=== PATIENT | female | born 1995 | race Caucasian/White ===

== ENCOUNTER 2016-09-17 00:15 | Emergency (ER) | payer MEDICAID ==
[2016-09-17 00:25] VITALS: BP 118/73; PULSE 72; TEMP 98; BMI 26.6
[2016-09-17] MEDS ORDERED: FLUCONAZOLE 150 MG TAB PO ONE (00:49)
[2016-09-17] MEDS ORDERED: CLOTRIMAZOLE 1% CREAM 15 GM TOP ONE (00:50)
--- NOTE | 2016-09-17 01:00 | EDPRACDOC ---
- General Information Chief Complaint: Skin Rash (not drug induced) Stated Complaint: RASH Time Seen by Provider: 09/17/16 00:40 Information Source: Patient Mode Of Arrival: Car Home Medications: Home Medications Clotrimazole [Lotrimin] 30 gm TP BID #1 cream..g. 09/17/16 Allergies/Adverse Reactions: Allergies Allergy/AdvReac Type Severity Reaction Status Date / Time No Known Allergies Allergy Verified 09/17/16 00:25 - History of Present Illness Onset: 1 MONTH HPI: PT PRESENTS WITH A CIRCULAR RED RASH NOTED TO PUBIC MONS. STATES THE AREA ITCHES BUT DOES NOT HURT. NO DRAINAGE NOTED FROM THE AREA. Rash Location: Reports: Perineum Quality: Reports: Pruritic, Red Known Exposure To: Reports: Other Relevant History of: Reports: None Irritability: Moderate Pain Severity: None ED Past Medical History - History Reviewed Yes Nurses notes reviewed and agree except as marked - Patient Medical History Psychological History: Denies: Depression Systemic History: Denies: Cancer - Social Medical History Smoking Status: Never smoker EDM Review of Systems - Review of Systems ROS Negative Except as Marked: Yes All systems reviewed and were negative except as marked - Physical Exam Constitutional: Alert Oriented to: Time, Person, Place Last recorded Vital Signs: Last Vital Signs Temp 98.0 F 09/17/16 00:22 Pulse 72 09/17/16 00:22 Resp 20 09/17/16 00:22 BP 118/73 09/17/16 00:22 Pulse Ox 98 09/17/16 00:22 Oxygen Pulse Oxygen Saturation 98 O2 Device Room Air Oxygen Flow Rate Fraction of Inspired Oxygen ( FIO2) - HEENT Head: Normal ( normocephalic) Eye Exam: Normal (PERRL, EOMI, Sclera white) Oropharynx: Normal (Pharynx:Moist without exudate,Gums-no swelling) Nose: No Symptoms Reported (septum midline) Neck: Normal (FROM, trachea at midline) - Respiratory/Cardiovascular Respiratory: Normal - CTA (BBS clear to auscultation without adventitious sounds ) Cardiovascular: Normal (RRR without murmur, gallop or rub) - GI Auscultation: Normal (NABS) Palpation: Normal (Soft,No rebound or guarding, non distended) Tenderness: Non tender Colunga's Sign: Negative Rectal Exam: Deferred - External: Rash (RED CIRCULAR RASH NOTED TO PUBIC MONS AREA) - Musculoskeletal Back: Normal (Non-Tender) Extremities: Normal (Normal tone, Pulses 2+ No cyanosis or edema, FROM) - Integumentary Skin: Normal, Warm, Dry Lymphatics: Normal (no adenopathy) - Neurologic Memory Impaired: Normal Motor Function: Normal (Normal tone, Pulses 2+ No cyanosis or edema, FROM) Cranial Nerve: Normal (CN II-X11 intact sensation, strength 5/5) Cerebellar: Normal Mood Description: Normal Perception: Normal - Differential Diagnosis Other Decision Time to Discharge: 01:00 - Departure Disposition: Home Condition: Stable Final Diagnosis: Fungal rash of torso Instructions: Acute Rash (ED) Education/Counseling Given To: Patient Education/Counseling Given Regarding: Diagnosis, Treatment, Prognosis, Follow Up Referrals: Austen Tejeda MD [Staff Physician] - One Week Prescriptions: Clotrimazole [Lotrimin] 30 gm TP BID #1 cream..g. Additional Instructions: FOLLOW UP WITH PCP NEXT WEEK. RETURN TO THE ED FOR WORSENING SYMPTOMS OR CONCERNS
== END 2016-09-17 01:16 | disposition home or self-care (01) ==
LOC: ED 00:15
DX: B36.9 Superficial mycosis, unspecified (principal)
CPT/HCPCS: 99282; J3490

== ENCOUNTER 2016-09-22 19:12 | Emergency (ER) | payer MEDICAID ==
[2016-09-22 19:56] VITALS: BP 129/64; PULSE 69; TEMP 98.5; BMI 26.4
--- NOTE | 2016-09-22 20:19 | DIRPT ---
CLINICAL DATA: Right hand pain for approximately 1 month. No known injury. Initial encounter. EXAM: RIGHT HAND - COMPLETE 3+ VIEW COMPARISON: None. FINDINGS: There is no evidence of fracture or dislocation. There is no evidence of arthropathy or other focal bone abnormality. Soft tissues are unremarkable. IMPRESSION: Normal exam. Electronically Signed By: Cheko Grullon M.D. On: 09/22/2016 20:16
--- NOTE | 2016-09-22 21:16 | EDPRACDOC ---
- General Information Chief Complaint: Hand Pain Stated Complaint: RIGHT ARM AND HAND PAIN Time Seen by Provider: 09/22/16 21:12 Information Source: Patient Mode of Arrival: Car Home Medications: Home Medications Meloxicam [Mobic] 7.5 mg PO BID #20 tab 09/22/16 Allergies/Adverse Reactions: Allergies Allergy/AdvReac Type Severity Reaction Status Date / Time No Known Allergies Allergy Verified 09/22/16 20:58 - History of Present Illness Onset: 1 WEEK HPI: PT PRESENTS TODAY WITH NUMBNESS AND PAIN TO RIGHT HAND AFTER "DOING A LOT OF ACTIVITY". NO DIRECT INJURY, FEVER. Location: Reports: Right Mechanism: Reports: No Injury/Trauma Associated Signs & Symptoms: Reports: Numbness, Hand Pain ED Past Medical History - History Reviewed Yes Nurses notes reviewed and agree except as marked - Patient Medical History Psychological History: Denies: Depression Systemic History: Denies: Cancer Surgical History: Denies: Hysterectomy - Social Medical History Smoking Status: Never smoker EDM Review of Systems - Review of Systems ROS Negative Except as Marked: Yes All systems reviewed and were negative except as marked Constitutional: No Symptoms Reported Neurological: Numbness Musculoskeletal: Hand, Wrist Integumentary: No Symptoms Reported - Physical Exam Constitutional: Alert (Awake), No apparent distress Oriented to: Time, Person, Place Last recorded Vital Signs: Last Vital Signs Temp 98.5 F 09/22/16 19:53 Pulse 69 09/22/16 19:53 Resp 20 09/22/16 19:53 BP 129/64 09/22/16 19:53 Pulse Ox 100 09/22/16 19:53 Oxygen Pulse Oxygen Saturation 100 O2 Device Room Air Oxygen Flow Rate Fraction of Inspired Oxygen ( FIO2) - HEENT Head: Normal Eye Exam: Normal Neck: Normal, Denies Pain, Midline - Respiratory/Cardiovascular Respiratory: Normal - CTA Cardiovascular: Normal - GI Palpation: Normal Tenderness: Non tender - Musculoskeletal Back: Normal Extremities: Other (POSITIVE PHALEN TEST; NO APPARENT DEFORMITY/SWELLLING/ BRUISING;) - Integumentary Skin: Normal Lymphatics: Normal - Neurologic Mood Description: Normal Thought: Coherent Perception: Normal Decision Time to Discharge: 21:15 - Departure Disposition: Home Condition: Good Final Diagnosis: Carpal tunnel syndrome Qualifiers: Laterality: right Qualified Code(s): G56.01 - Carpal tunnel syndrome, right upper limb Instructions: Carpal Tunnel Syndrome Exercises (GEN), RICE: Routine Care for Injuries Education/Counseling Given To: Patient Education/Counseling Given Regarding: Diagnosis, Treatment, Follow Up Referrals: None,No Provider [Primary Care Provider] - One Week Shaka Donnelly MD [Staff Physician] - One Week Prescriptions: New Meloxicam [Mobic] 7.5 mg PO BID #20 tab Additional Instructions: PLEASE FOLLOW UP WITH ORTHO.
== END 2016-09-22 21:20 | disposition home or self-care (01) ==
LOC: ED 19:12 → EDMC 21:20
DX: G56.01 Carpal tunnel syndrome, right upper limb (principal)
CPT/HCPCS: 99282

== ENCOUNTER 2016-09-25 18:05 | Emergency (ER) | payer MEDICAID ==
[2016-09-25 18:37] VITALS: BP 127/58; PULSE 70; TEMP 98.5; BMI 26.7
--- NOTE | 2016-09-25 18:37 | EDPRACDOC ---
- General Information Stated Complaint: RASH ON BILATERAL LEGS ITCHING & BURNING Time Seen by Provider: 09/25/16 18:30 Information Source: Patient Home Medications: Home Medications Meloxicam [Mobic] 7.5 mg PO BID #20 tab 09/22/16 Hydroxyzine Pamoate [Vistaril] 25 mg PO Q6 PRN #20 capsule 09/25/16 Prednisone [Deltasone, Orasone] 20 mg PO DAILY #20 tab 09/25/16 Ranitidine [Zantac] 150 mg PO BID #14 tablet 09/25/16 Allergies/Adverse Reactions: Allergies Allergy/AdvReac Type Severity Reaction Status Date / Time No Known Allergies Allergy Verified 09/25/16 18:37 - History of Present Illness Onset: 1 week HPI: Pt c/o rash to bilateral legs and arms x 1 week. Denies sob, throat swelling, difficulty swallowing. Rash Location: Reports: Arms, Legs Quality: Reports: Pruritic, Red Known Exposure To: Reports: Other (unknown) Relevant History of: Reports: None Pain Severity: None Associated Signs and Symptoms: Reports: None ED Past Medical History - History Reviewed Yes Nurses notes reviewed and agree except as marked - Patient Medical History Psychological History: Denies: Depression Systemic History: Denies: Cancer Surgical History: Denies: Hysterectomy - Social Medical History Smoking Status: Never smoker ETOH: None Substance Abuse: None EDM Review of Systems - Review of Systems Constitutional: No Symptoms Reported. negative: Fever, Chills, Weakness, Fatigue, Loss of Appetite Ears: No Symptoms Reported. negative: Pain, Hearing Loss, Drainage, Ear Pulling Throat: No Symptoms Reported. negative: Pain, Swelling Nose: No Symptoms Reported. negative: Congestion, Bleeding, Discharge, Injection, Swelling, Deformity, Ecchymosis, Tender, Abrasion, Laceration Mouth: No Symptoms Reported. negative: Pain, Drooling Respiratory: No Symptoms Reported. negative: Cough, Brassy Cough, Barky Cough, Shortness of Breath, Wheezing, Hemoptysis Cardiovascular: No Symptoms Reported. negative: Chest Pain, Palpitations, Syncope, Edema, Orthopnea, PND, Skin Mottling, Cyanosis Gastrointestinal: No Symptoms Reported. negative: Pain, Constipation, Nausea, Vomiting, Diarrhea, Melena, Formula Intolerance Genitourinary: No Symptoms Reported. negative: Dysuria, Hematuria, Frequency, Discharge, Bleeding, Testicular Pain, Neurological: No Symptoms Reported. negative: Headache, Dizziness, Seizure, Numbness, Weakness, Speech Difficulty, Gait Difficulty Musculoskeletal: No Symptoms Reported. negative: Neck, Chestwall, Ribs, Back, Shoulder, Arm, Elbow, Forearm, Wrist, Hand, Pelvis, Hip, Femur, Knee, Leg, Ankle , Foot Integumentary: Itching, Rash Allergic/Immunologic: Itching Hematologic: No Symptoms Reported. negative: Lymphadenopathy, Easy Bruising, Easy Bleeding Psychiatric: No Symptoms Reported. negative: Anxiety, Depression, Hallucinations, Insomnia, Suicidal - Physical Exam Constitutional: Alert Oriented to: Time, Person, Place Last recorded Vital Signs: Oxygen Pulse Oxygen Saturation O2 Device Oxygen Flow Rate Fraction of Inspired Oxygen ( FIO2) - HEENT Head: Normal ( normocephalic) Eye Exam: Normal (PERRL, EOMI, Sclera white) Oropharynx: Normal (Pharynx:Moist without exudate,Gums-no swelling) Nose: No Symptoms Reported (septum midline) Neck: Normal (FROM, trachea at midline) - Respiratory/Cardiovascular Respiratory: Normal - CTA (BBS clear to auscultation without adventitious sounds ) Cardiovascular: Normal (RRR without murmur, gallop or rub) - GI Auscultation: Normal (NABS) Palpation: Normal (Soft,No rebound or guarding, non distended) Tenderness: Non tender - Musculoskeletal Back: Normal (Non-Tender) Extremities: Normal (Normal tone, Pulses 2+ No cyanosis or edema, FROM) - Integumentary Skin: Rash Lymphatics: Normal (no adenopathy) - Neurologic Memory Impaired: Normal Motor Function: Normal (Normal tone, Pulses 2+ No cyanosis or edema, FROM) Mood Description: Normal Perception: Normal ED Rash Exam - Physical Exam Constitutional: Alert - HEENT Eye Exam: Normal. negative: Pale Conjunctiva, Xanthelasma, Scleral Icterus, Conjunctival Injection, Chemosis, Edema, Other Tongue: Normal. negative: Vesicles, Ulcers, Timber Tongue, White [place] Tongue, Other Palate: Normal. negative: Soft, Hard, Petechiae, Vesicles, Ulcers, Unilateral Swelling, Uvular deviation, Tender, Red, Pointing, Draining, Other Buccal Mucosa: Normal. negative: Vesicles, Petechiae, White Spots, Other Oropharynx: Normal. negative: Membranes Dry, Red, Exudate, White Plaques, Tonsillar Hypertrophy, Other Mucos Membranes: Normal. negative: Pallor, Cyanosis, Membranes Dry, H, Other Neck: Normal. negative: Meningeal Signs, Thyromegaly, Step off, Tender, Limited ROM, Crepitus, Denies Pain, Tracheal Deviation, Edema, Other - Respiratory/Cardiovascular Respiratory: Normal - CTA. negative: Diminished, Wheezes, Rales, Rhonchi, Stridor, Accessory Muscle Use, Retractions, Tachypnea, Other Cardiovascular/Chest: Normal. negative: Bradycardia, Tachycardia, Diastolic murmur, Systolic murmur, Gallop/S3, Gallop/S4, Irregular, B, JVD, Other - GI Auscultation: Normal Palpation: Normal Tenderness: Non tender. negative: Diffuse, Mild, Moderate, Severe, Rebound, Guarding, Other - Intugementary Skin: Rash Rash Location: Arms, Legs Skin Lesion: Maculopapular, Patch Skin Color: Red Lymphatics: Normal - Differential Diagnosis Contact dermatitis, Urticaria Decision Time to Discharge: 18:35 - Departure Disposition: Home Condition: Good Final Diagnosis: Contact dermatitis Qualifiers: Contact dermatitis type: unspecified Contact dermatitis trigger: unspecified trigger Qualified Code(s): L25.9 - Unspecified contact dermatitis, unspecified cause Instructions: Contact Dermatitis (ED) Education/Counseling Given To: Patient Education/Counseling Given Regarding: Diagnosis, Treatment, Follow Up Referrals: None,No Provider [Primary Care Provider] - One Week Melecio Markham MD [Staff Physician] - One Week Prescriptions: New Hydroxyzine Pamoate [Vistaril] 25 mg PO Q6 PRN #20 capsule PRN Reason: Itching Prednisone [Deltasone, Orasone] 20 mg PO DAILY #20 tab Ranitidine [Zantac] 150 mg PO BID #14 tablet No Action Meloxicam [Mobic] 7.5 mg PO BID #20 tab Additional Instructions: Return for worse or different symptoms.
== END 2016-09-25 18:47 | disposition home or self-care (01) ==
LOC: EDMC 18:05
DX: L25.9 Unspecified contact dermatitis, unspecified cause (principal)
CPT/HCPCS: 99282